=== PATIENT | male | born 1965 | race Caucasian/White ===

== ENCOUNTER 2017-04-12 18:13 | Emergency (ER) | payer BC | END 2017-04-12 21:10 | disposition home or self-care (01) | LOC: ER1 18:13 | DX: S61.216A Laceration without foreign body of right little finger without damage to nail, initial encounter (principal); W20.8XXA Other cause of strike by thrown, projected or falling object, initial encounter; Y92.009 Unspecified place in unspecified non-institutional (private) residence as the place of occurrence of the external cause; F17.290 Nicotine dependence, other tobacco product, uncomplicated | CPT/HCPCS: 12001; 29130; 73130; 99283 ==

== ENCOUNTER → 2022-04-17 | Outpatient (CLI) | payer BC | LOC: KOH-I 08:57 | DX: M25.511 Pain in right shoulder (principal); S46.811A Strain of other muscles, fascia and tendons at shoulder and upper arm level, right arm, initial encounter | CPT/HCPCS: 73221 ==